=== PATIENT | male | born 2000 | race Caucasian/White ===

== ENCOUNTER 2019-04-19 21:03 | Emergency (ER) | payer SELFPAY ==
[~2019-04-19] VITALS: Ht 185.4 cm; Wt 124.0 kg
[2019-04-19 21:09] VITALS: BP 149/75
[2019-04-19] MEDS ORDERED: TETanus/Pertussis (Acell)/Diphther VAC/PF (Tdap-Adult) 0.5ml syringe IM ONE (21:15)
== END 2019-04-19 21:36 | disposition home or self-care (01) ==
LOC: ER 21:03
DX: S91.332A Puncture wound without foreign body, left foot, initial encounter (principal); W45.0XXA Nail entering through skin, initial encounter; Y93.89 Activity, other specified; Y92.89 Other specified places as the place of occurrence of the external cause; Y99.8 Other external cause status
CPT/HCPCS: 90471; 99283